=== PATIENT | female | born 1990 | race American Indian/Alaskan Native ===

== ENCOUNTER 2022-02-28 00:28 | Emergency (ER) | payer MEDICAID ==
[2022-02-28] MEDS ORDERED: ALBUTEROL 2.5 MG/3 ML NEBU IH ONE (00:59)
[2022-02-28] MEDS ORDERED: IPRATROPIUM 0.02% NEBU 2.5 ML IH ONE (00:59)
[2022-02-28 02:59] LABS: Basophils # (Auto) 0.1 K/mm3 (0.0-0.1); Basophils % (Auto) 0.7 % (0.0-1.8); Eosinophils # (Auto) 1.1 K/mm3 (0.0-0.4); Eosinophils % (Auto) 11.1 % (0.0-4.3); Hemoglobin 11.4 gm/dl (10.1-14.3); Lymphocytes # (Auto) 1.7 K/mm3 (1.2-5.4); Mean Corpuscular HGB Conc 33 % (30-34); Mean Corpuscular Volume 78 fl (79-97); Monocytes # (Auto) 0.9 K/mm3 (0.0-0.8); Monocytes % (Auto) 9.1 % (0.0-7.3); Platelet Count 351 K/mm3 (140-440); Red Blood Count 4.47 M/mm3 (3.65-5.03); Red Cell Distribution Width 15.4 % (13.2-15.2)
[2022-02-28 04:15] VITALS: BP 132/81
--- NOTE | 2022-02-28 04:17 | Emergency Department Report ---
ED General Adult HPI - General Chief complaint: Dyspnea/Respdistress Stated complaint: SOB Time Seen by Provider: 02/28/22 03:24 Source: patient Mode of arrival: Ambulatory Limitations: No Limitations - History of Present Illness Initial comments: 31-year-old female no significant past medical history reports to the ER with complaints of shortness of breath for 2 weeks as well as cough cold congestion. Patient also reports her symptoms started to appear intermittently after moving an apartment a few months ago. Patient reports whenever the air within her apartment comes on her shortness of breath and congestion gets started. Patient reports possible mold exposure. As prior units had prior mold in November. Patient is 2 2 months . No other acute signs or symptoms reported. - Related Data Previous Rx's Medication Instructions Recorded Last Taken Type Albuterol Mdi (or & Nicu Only) 1 puff IH Q4HR PRN 30 Days #1 02/28/22 Unknown Rx [ProAir HFA Inhaler] container Allergies Allergy/AdvReac Type Severity Reaction Status Date / Time No Known Allergies Allergy Verified 02/28/22 04:07 ED Review of Systems ROS: Stated complaint: SOB Other details as noted in HPI Comment: All other systems reviewed and negative ENT: congestion Respiratory: shortness of breath Cardiovascular: denies: chest pain ED Past Medical Hx - Past Medical History Previous Medical History?: No - Social History Smoking Status: Never Smoker Substance Use Type: None - Medications Home Medications: Home Medications Medication Instructions Recorded Confirmed Last Taken Type Albuterol Mdi (or & Nicu Only) 1 puff IH Q4HR PRN 30 Days #1 02/28/22 Unknown Rx [ProAir HFA Inhaler] container ED Physical Exam - General Limitations: No Limitations General appearance: alert, in no apparent distress - Head Head exam: Present: atraumatic, normocephalic - Eye Eye exam: Present: normal appearance - ENT ENT exam: Present: mucous membranes moist - Neck Neck exam: Present: normal inspection - Respiratory Respiratory exam: Present: normal lung sounds bilaterally, other (Nonlabored breathing). Absent: respiratory distress, wheezes, rales, rhonchi, stridor - Cardiovascular Cardiovascular Exam: Present: regular rate, normal rhythm. Absent: systolic murmur, diastolic murmur, rubs, gallop - GI/Abdominal GI/Abdominal exam: Present: soft, normal bowel sounds - Extremities Exam Extremities exam: Present: normal inspection - Back Exam Back exam: Present: normal inspection - Neurological Exam Neurological exam: Present: alert, oriented X3 - Psychiatric Psychiatric exam: Present: normal affect, normal mood - Skin Skin exam: Present: warm, dry, intact, normal color. Absent: rash ED Course Vital Signs 02/28/22 02/28/22 02/28/22 00:52 01:47 04:15 Temperature 98.2 F 97.6 F Pulse Rate 120 H 90 Pulse Rate [ 124 H Bilateral Throughout] Respiratory 24 17 Rate Respiratory 20 Rate [Bilateral Throughout] Blood Pressure 150/102 Blood Pressure 132/81 [Left] O2 Sat by Pulse 97 97 Oximetry ED Medical Decision Making - Lab Data Result diagrams: 02/28/22 02:13 - Medical Decision Making 31-year-old female no significant past medical history reports to the ER with complaints of shortness of breath for 2 weeks as well as cough cold congestion. Patient also reports her symptoms started to appear intermittently after moving an apartment a few months ago. Patient reports whenever the air within her apartment comes on her shortness of breath and congestion gets started. Patient reports possible mold exposure. As prior units had prior mold in November. Patient is 2 2 months . No other acute signs or symptoms reported. Lungs clear to auscultation. Nasal congestion noted. No cough present. No imaging is needed at this time. Patient reports feeling better after breathing treatment. 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 Patient also informed to follow her [employer] her primary care provider. Patient agrees with plan of care and verbalized understanding. Vital Signs 02/28/22 02/28/22 02/28/22 00:52 01:47 04:15 Temperature 98.2 F 97.6 F Pulse Rate 120 H 90 Pulse Rate [ 124 H Bilateral Throughout] Respiratory 24 17 Rate Respiratory 20 Rate [Bilateral Throughout] Blood Pressure 150/102 Blood Pressure 132/81 [Left] O2 Sat by Pulse 97 97 Oximetry Critical care attestation.: If time is entered above; I have spent that time in minutes in the direct care of this critically ill patient, excluding procedure time. ED Disposition Clinical Impression: SOB (shortness of breath), Mold exposure Disposition: 01 HOME / SELF CARE / HOMELESS Is pt being admited?: No Condition: Stable Instructions: Shortness of Breath, Adult, [place]-iq-Ygel Prescriptions: Albuterol Mdi (or & Nicu Only) [ProAir HFA Inhaler] 1 puff IH Q4HR PRN 30 Days #1 container PRN Reason: wheezing/ Shortness of breath Referrals: SHANTHI SWANN MD [Staff Physician] - 3-5 Days [facility] [Outside] - 3-5 Days [facility] [Outside] - 3-5 Days [facility] [Outside] - 3-5 Days
== END 2022-02-28 06:44 | disposition home or self-care (01) ==
LOC: ED 00:28
DX: R06.02 Shortness of breath (principal); R05.9 Cough, unspecified; R09.89 Other specified symptoms and signs involving the circulatory and respiratory systems; Z77.120 Contact with and (suspected) exposure to mold (toxic); Z79.899 Other long term (current) drug therapy
CPT/HCPCS: 36415; 85025; 94640; 94644; 99283